=== PATIENT | female | born 1985 | race Two or more races ===

== ENCOUNTER 2024-06-30 15:16 | Outpatient (AMB) | payer MEDICAID, SELFPAY ==
[2024-06-30 15:36] VITALS: BP 90/60; PULSE 77; RESP 14; TEMP 36.6; O2SAT 97; BMI 23.8
--- NOTE | 2024-06-30 15:36 | OBCLNT_ITS ---
OB Initial Visit Menstrual History Menstrual reliability: definite Flow: normal Menstrual regularity: regular Monthly: Yes Age at menarche: 15 On control pills at conception: No Date of positive home test: 04/15/24 Associated symptoms (LMP): Reports fatigue, breast tenderness and irritability Infection History & Risk Evaluation History of STDs: none Genetic Screening & History Genetic Screening/Teratology Counseling - Includes patient, baby's father, or anyone in either family with: 1. Patient's age 35 years or older as of estimated date of delivery: Yes 2. Thalassemia (Maldivian, Botswanan, Mediterranean, or Background); MCV less than 80: No 3. Neural Tube Defect (Meningomyelocele, Spina Bifida, or Anencephaly): No 4. Congenital Heart Defect: No 5. Down Syndrome: No 6. Rocael-Sachs (Ashkenazi Latter Day, Cajun, [place] Korean Mccurtain): No 7. Emmy Disease (Ashkenazi Latter Day): No 8. Familial Dysautonomia (Ashkenazi Latter Day): No 9. Sickle Cell Disease or Trait (): No 10. Hemophilia or other blood disorders: No 11. Muscular Dystrophy: No 12. Cystic Fibrosis: No 13. [place]'s Chorea: No 14. Mental Retardation/Autism: No 15. Other inherited genetic or chromosomal disorder: No 16. Maternal Metabolic Disorder (EG,TYPE 1 Diabetes, PKU): No 17. Patient or baby's father had a child with defects not listed above: No 18. Recurrent loss or a stillbirth: No 19. Medications (including supplements, vitamins, herbs or otc drugs)/illicit/recreational drugs/alcohol since last menstrual period: No 20. Any other: No Infection History 1. Live with someone with TB or exposed to TB: No 2. Rash or viral illness since last menstrual period: No 3. Hepatitis B,C: No Other (see comments) Source: [employer] Vital Signs 3 06/30/24 15:36 Height 1.57 m Height Method Stated Weight 58.967 kg Weight Measurement Method Standing Scale BMI 23.8 BP 90/60 Blood Pressure Source Automatic Cuff Blood Pressure Location Left Upper Arm Position Sitting Respiration 14 Pulse 77 Pulse Source Monitor Temp 98 F Temp Source Oral Pulse Oximetry (%) 97 Oxygen Delivery Method Room Air Allergies/Home Meds Allergies & Medications Allergies No Known Allergies Allergy (Verified 06/30/24 15:38) Medication Reconciliation vitamins-iron fumarate 27 mg iron-folic acid 0.8 mg tablet ( Vitamin) 1 tab PO QDAY 12/08/19 [History Confirmed 06/30/24] prednisone 20 mg tablet See Taper PO QDAY #21 tabs 07/27/22 [Rx Confirmed 06/30/24] Intake Visit Data Collection New Patient or Established: New Patient (never been to [facility]) Reason for Visit:: FIRST PART Seen by Clinical Staff ONLY (RN/MA): No Nitrogen Operator Required: Yes Nitrogen Operator's name/title: BRANDON Corbin Do You Feel Safe at Home: Yes Authorities Contacted: N/A PCP or OBGYN visit in last 3 months: Yes Date of Last PCP or OBGYN visit: 04/15/24 Hx Now: Yes Are you currently on any form of Control: No Last menstrual period: 02/26/24 Pain Present Currently: No Pain Scale Used: Olivarez-Coates/Numerical Pain scale:: 0 Smoking Status Smoking Status: Never smoker Questionnaires Covid-19 Vaccine Questionnaire Has patient been vacinated for Covid-19 Have you been vacinated for Covid-19: No PHQ-9 PHQ-2 Over the last 2 weeks, how often have you been bothered by any of the following problems? 1. Little interest or pleasure in doing things: not at all 2. Feeling down, depressed, or hopeless: not at all Total score: 0 Depression screen completed yes Social History Living Situation History Marital Status: Lives With: Family Housing: House Tobacco History Smoking Status: Never smoker Second Hand Smoke Exposure: No Alcohol History Alcohol Intake: Never Substance Use History Substance Use: NO Domestic Abuse History Do You Feel Safe at Home: Yes Past Medical History Past Medical History Have you ever been diagnosed with any of the following: Neurological Problems Seizures: No Cardiology Problems Congestive Heart Failure: No Respiratory Problems Chronic Obstructive Pulmonary Disease (COPD): No Asthma: No Stomache/Intestinal Problems Hepatitis: No Colorectal Cancer: No Genital/Urinary Problems Renal Disease: No Prostate Cancer: No Reproductive Problems Breast Cancer: No Previous Pregnancies: Yes Testicular Cancer: No Musculoskeletal Problems Bone Cancer: No Endocrine Problems Diabetes Mellitus Type 1: No Diabetes Mellitus Type 2: No Hypothyroidism: No Blood Problems Anemia: No Sickle Cell Disease: No Psychologic Problems Depression: Yes Anxiety: No Depression: No Other Problems Hospitalization: No Down Syndrome: No Developmental Delay: No Shingles: No Falls: No Blood Transfusions: No Blood Transfusion Reaction: No Anesthesia Reactions: No Organ Transplant: No Chemotherapy: No Radiation Therapy: No Hyperbaric Therapy: No MRSA: No VRSA: No Vancomycin-Resistant Enterococci: No Human Immunodeficiency Virus (HIV): No Chicken Pox: No Measles: No Mumps: No Rubella (Icelandic Measles): No Pertussis: No Clostridium Difficile: No Cancer: No Cervical Cancer: No Lung Cancer: No Ovarian Cancer: No Surgical History Additional Surgical History: Gestational DM, hx lovenox x 2 pregnancies, unsure if she has clots History of Present Illness HPI Narrative The patient is a 38-year-old -0-3-5 at around 17 weeks with a last menstrual period in mid February who presents as a new OB. She is Yoruba- speaking only and through my medical equipment repairer, Brandon, her history is obtained. Patient declines a breast exam she declines getting undressed she declines a Pap smear stating it will cause a miscarriage. She will except a pelvic exam and an ultrasound. She had diabetes for 2 pregnancies and had required insulin she also was on a blood thinner for the last 2 pregnancies for clots. I have no records available. She has had a history of vaginal delivery x 5. The last baby was born at 35 weeks per patient she was induced for diabetes. Review of Systems Constitutional Constitutional: Reports system reviewed and no additional complaints, except as documented and Reports fatigue Psychiatric Psychiatric: Reports irritability Endocrine Endocrine: Reports fatigue Exam Narrative Physical exam: Patient largely refused to be examined today except for a pelvic exam. General Limitations: no limitations and language barrier General Appearance: alert, comfortable and healthy appearing Abdominal Abdominal exam: Present soft External exam: Present other Speculum exam: Present other Bimanual exam: Present uterine enlargement Extremities Extremities exam: Present normal inspection Other Other exam information: Patient declined getting undressed and having a full gynecological exam. Her pelvic exam revealed approximately 16 to 17 weeks size uterus with an adequate pelvis and no tenderness. Results Objective Laboratory: All labs ordered. Hemoglobin A1c was ordered. Assessment & Plan Additional Plan Patient will need labs, hemoglobin A1c. She will need to be referred for level 2 ultrasound secondary to AMA and a history of gestational diabetes. Patient will except an NIPT but will declined an amniocentesis. We need to follow-up on whether the patient needs Lovenox this . Follow Up: 4 Weeks (Call for an appointment) Office Procedures OB Clinic LOC & Office Proc's Nursing/Assessment Patient Status: Initial/New Patient OB Clinic Nursing Assessment: Medication Reconciliation, Update PMH in EMR and Vital Signs OB Clinic Coordination of Care: Complex Care and Chronic Disease 1-5, Consent,records obtained, informed consent, Education Simp Pt/Fam, Lab and Imaging orders and Staff clarify orders Special Needs: Heart tones New Patient Charge New Patient Point Assignment: [id number] New Patient Point Charge: FIELD ADMINISTRATIVE ASSISTANT Level 4 ([id number])
== END 2024-06-30 16:29 | disposition home or self-care (01) ==
LOC: HODSOBC 15:16
PROVIDERS: Supervising Provider Obstetrics & Gynecology; Visit Provider Obstetrics & Gynecology
DX: O09.522 Supervision of elderly multigravida, second trimester (principal); Z3A.17 17 weeks gestation of pregnancy
CPT/HCPCS: 99204; 99214; G0463

== ENCOUNTER → 2024-07-04 | Outpatient (CLI) | payer MEDICAID, SELFPAY ==
--- NOTE | 2024-07-04 12:50 | XR_ITS ---
Examination: Complete OB ultrasound greater than 14 weeks Date and time of exam: July 04, 2024 12:20 PM INDICATIONS: Diagnosis antiphospholipid syndrome, diagnosis advanced maternal age Findings: Viable intrauterine single fetus with single amniotic sac presentation variable Cardiac motion 141 BPM Placenta fundal grade 1 Umbilical cord insertion seen Amniotic fluid index 13.2 cm Cervix 6.1 cm Right ovary obscured by bowel gas Left ovary 2.9 x 1.4 x 2.5 cm arterial flow. Composite estimated gestational age based on BPD, head circumference, abdominal circumference, femur length is 18 weeks 0 days Estimated weight 221.7 g. Survey of intracranial anatomy, spinal anatomy, abdominal anatomy, four-chamber heart performed with no abnormalities identified. Impression: Viable intrauterine gestation variable presentation Estimated gestational age 18 weeks 0 days.
== END | disposition home or self-care (01) ==
PROVIDERS: PCP Obstetrics & Gynecology; Referring Provider Obstetrics & Gynecology; Visit Provider Obstetrics & Gynecology
DX: Z34.91 Encounter for supervision of normal pregnancy, unspecified, first trimester (principal)
CPT/HCPCS: 76805

== ENCOUNTER 2024-08-05 14:04 | Outpatient (AMB) | payer MEDICAID, SELFPAY ==
[2024-08-05 14:13] VITALS: BP 90/55; PULSE 79; RESP 16; TEMP 36.2; O2SAT 98; BMI 24.6
--- NOTE | 2024-08-05 14:13 | AMB.OBVISIT ---
Vital Signs 08/05/24 14:13 Height 1.57 m Height Method Stated Weight 60.781 kg Weight Measurement Method Standing Scale BMI 24.6 BP 90/55 L Blood Pressure Source Automatic Cuff Blood Pressure Location Left Upper Arm Position Sitting Respiration 16 Pulse 79 Pulse Source Monitor Temp 97.2 F Temp Source Oral Pulse Oximetry (%) 98 Oxygen Delivery Method Room Air Allergies/Home Meds Allergies & Medications Allergies No Known Allergies Allergy (Verified 08/05/24 14:14) Medication Reconciliation vitamins-iron fumarate 27 mg iron-folic acid 0.8 mg tablet ( Vitamin) 1 tab PO QDAY 12/08/19 [History Confirmed 08/05/24] prednisone 20 mg tablet See Taper PO QDAY #21 tabs 07/27/22 [Rx Confirmed 08/05/24] aspirin 81 mg chewable tablet 81 mg PO QDAY #30 tabs 08/05/24 [Rx] enoxaparin 40 mg/0.4 mL subcutaneous syringe (Lovenox) 40 mg (0.4 mL) subcut Q24H #4 mL 08/05/24 [Rx] vitamins no.159-iron fumarate 28 mg-folic acid 800 mcg tablet 1 tab PO DAILY #90 tabs 08/05/24 [Rx] Intake Visit Data Collection New Patient or Established: Established Patient (seen at [facility] within 3 years) Reason for Visit:: Return OB Visit Seen by Clinical Staff ONLY (RN/MA): No Smooth And Burr Worker Composites Required: Yes Smooth And Burr Worker Composites's name/title: VALENTIN LEO / FOOD SERVICE MANAGER Do You Feel Safe at Home: Yes Authorities Contacted: N/A PCP or OBGYN visit in last 3 months: Yes Date of Last PCP or OBGYN visit: 06/30/24 Hx Now: Yes Are you currently on any form of Control: No Pain Present Currently: No Pain Scale Used: Olivarez-Coates/Numerical Pain scale:: 0 Smoking Status Smoking Status: Never smoker Questionnaires Covid-19 Vaccine Questionnaire Has patient been vacinated for Covid-19 Have you been vacinated for Covid-19: Yes PHQ-9 PHQ-2 Over the last 2 weeks, how often have you been bothered by any of the following problems? 1. Little interest or pleasure in doing things: not at all 2. 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 Smoking Status: Never smoker Second Hand Smoke Exposure: No Alcohol History Alcohol Intake: Never Substance Use History Substance Use: NO Domestic Abuse History Do You Feel Safe at Home: Yes Past Medical History Past Medical History Have you ever been diagnosed with any of the following: Neurological Problems Seizures: No Cardiology Problems Congestive Heart Failure: No Respiratory Problems Chronic Obstructive Pulmonary Disease (COPD): No Asthma: No Stomache/Intestinal Problems Hepatitis: No Colorectal Cancer: No Genital/Urinary Problems Renal Disease: No Prostate Cancer: No Reproductive Problems Breast Cancer: No Previous Pregnancies: Yes Testicular Cancer: No Musculoskeletal Problems Bone Cancer: No Endocrine Problems Diabetes Mellitus Type 1: No Diabetes Mellitus Type 2: No Hypothyroidism: No Blood Problems Anemia: No Sickle Cell Disease: No Psychologic Problems Depression: Yes Anxiety: No Depression: No Other Problems Hospitalization: No Down Syndrome: No Developmental Delay: No Shingles: No Falls: No Blood Transfusions: No Blood Transfusion Reaction: No Anesthesia Reactions: No Organ Transplant: No Chemotherapy: No Radiation Therapy: No Hyperbaric Therapy: No MRSA: No VRSA: No Vancomycin-Resistant Enterococci: No Human Immunodeficiency Virus (HIV): No Chicken Pox: No Measles: No Mumps: No Rubella (Bengali Measles): No Pertussis: No Clostridium Difficile: No Cancer: No Cervical Cancer: No Lung Cancer: No Ovarian Cancer: No History of Present Illness HPI Narrative Patient is a 38-year-old -0-3-5 presents for routine OB appointment. She is close to 20 weeks . She does work in the [employer] and bends and lifts all day. 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 We did discuss going off on disability secondary to the very physical nature of her work. She denies cramping or vaginal bleeding. Her labs are reviewed with her today including a normal NIPT. Patient knows she is having a girl. She knows she is to be scheduled for a level 2 ultrasound. She has a history of gestational diabetes her hemoglobin A1c this is normal. She was on Lovenox in a previous for possible antiphospholipid antibody syndrome. We will start this again. Review of Systems Constitutional Comments: No cramping or bleeding. No contractions. No loss of fluid fluids. Good movement. Visit SAEED Calculator Estimated Delivery Date Method Current WG Current Estimate 12/05/24 Ultrasound #1 22w 4d Expected Delivery Route/Plan Anticipate vaginal delivery. Grand multiparous. To IV lines and consider blood on hold depending on what patient's hemoglobin is. Initial Weight: Not Recorded Date <del>?</del> EGA Weight Edema CTX Effacement BP Fundal ht Pres Dilation Effacement Station Visit Note Alb Glu FHR Mov 08/05/24 <del>?</del> 22w 4d 60.781 kg 90/55 24 150 active Assessment & Plan Diagnosis / Problem List (1) : Status: Acute Qualifiers: Weeks of gestation: 22 weeks Qualified Code(s): Z3A.22 - 22 weeks gestation of (2) Antiphospholipid antibody syndrome complicating : Status: Acute Plan: Start Lovenox 40 mg daily now. Patient was on this in the past. She knows how to administer this (3) AMA (advanced maternal age) multigravida 35+: Status: Acute Qualifiers: Trimester: second trimester Qualified Code(s): O09.522 - Supervision of elderly multigravida, second trimester Plan: Scheduled for level [address] Herrera. Normal NIPT 46XX. Additional Plan Follow Up: 4 Weeks Office Procedures OB Clinic LOC & Office Proc's Nursing/Assessment Patient Status: Established Patient OB Clinic Nursing Assessment: BP Monitoring, Medication Reconciliation, Update PMH in EMR and Vital Signs OB Clinic Coordination of Care: Complex Care and Chronic Disease 1-5, Consent,records obtained, informed consent, Education Simp Pt/Fam and Staff clarify orders Established Patient Charge Established Patient Point Assignment: 100 Established Patient Point Charge: EP Level 3 (80-115)
== END 2024-08-05 14:45 | disposition home or self-care (01) ==
LOC: HODSOBC 14:04
PROVIDERS: Supervising Provider Obstetrics & Gynecology; Visit Provider Obstetrics & Gynecology
DX: O09.522 Supervision of elderly multigravida, second trimester (principal); D68.61 Antiphospholipid syndrome; Z3A.20 20 weeks gestation of pregnancy
CPT/HCPCS: 99213; G0463

== ENCOUNTER 2024-09-05 13:20 | Outpatient (AMB) | payer MEDICAID, SELFPAY ==
[2024-09-05 13:26] VITALS: BP 96/61; PULSE 75; RESP 14; TEMP 36.4; O2SAT 97; BMI 25.4
--- NOTE | 2024-09-05 13:26 | OBCLNT_ITS ---
Vital Signs 09/05/24 13:26 Height 1.57 m Height Method Stated Weight 62.652 kg Weight Measurement Method Standing Scale BMI 25.4 BP 96/61 Blood Pressure Source Automatic Cuff Blood Pressure Location Left Upper Arm Position Sitting Respiration 14 Pulse 75 Pulse Source Monitor Temp 97.6 F Temp Source Oral Pulse Oximetry (%) 97 Oxygen Delivery Method Room Air Allergies/Home Meds Allergies & Medications Allergies No Known Allergies Allergy (Verified 09/05/24 13:27) Medication Reconciliation vitamins-iron fumarate 27 mg iron-folic acid 0.8 mg tablet ( Vitamin) 1 tab PO QDAY 12/08/19 [History Confirmed 09/05/24] prednisone 20 mg tablet See Taper PO QDAY #21 tabs 07/27/22 [Rx Confirmed 09/05/24] aspirin 81 mg chewable tablet 81 mg PO QDAY #30 tabs 08/05/24 [Rx Confirmed 09/05/24] vitamins no.159-iron fumarate 28 mg-folic acid 800 mcg tablet 1 tab PO DAILY #90 tabs 08/05/24 [Rx Confirmed 09/05/24] enoxaparin 40 mg/0.4 mL subcutaneous syringe (Lovenox) 40 mg (0.4 mL) subcut Q24H #4 mL 09/10/24 [Rx] Intake Visit Data Collection New Patient or Established: Established Patient (seen at [facility] within 3 years) Reason for Visit:: CARE Seen by Clinical Staff ONLY (RN/MA): No Conference Specialist Required: No Do You Feel Safe at Home: Yes Authorities Contacted: N/A PCP or OBGYN visit in last 3 months: Yes Hx Now: Yes Are you currently on any form of Control: No Pain Present Currently: No Pain Scale Used: Olivarez-Coates/Numerical Pain scale:: 0 Smoking Status Smoking Status: Never smoker Questionnaires Covid-19 Vaccine Questionnaire Has patient been vacinated for Covid-19 Have you been vacinated for Covid-19: No PHQ-9 PHQ-2 Over the last 2 weeks, how often have you been bothered by any of the following problems? 1. Little interest or pleasure in doing things: not at all 2. Feeling down, depressed, or hopeless: not at all Total score: 0 PHQ-9 3. Trouble falling or staying asleep, or sleeping too much: Not at all 4. Feeling tired or having little energy: Not at all 5. Poor appetite or overeating: Not at all 6. Feeling bad about yourself - or that you are a failure or have let yourself or your family down: Not at all 7. Trouble concentrating on things, such as reading the newspaper or watching television: Not at all 8. Moving or speaking so slowly that other people could have noticed? - Or the opposite - being so fidgety or restless that you have been moving around a lot more than usual: not at all 9. Thoughts that you would be better off or of hurting yourself in some way: Not at all Total score: 0 Source: Developed by Drs. Horace Caceres, Radha Castro, Emeterio Lindquist and colleagues, with an educational david from [employer]. 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 Smoking Status: Never smoker Second Hand Smoke Exposure: No Alcohol History Alcohol Intake: Never Substance Use History Substance Use: NO Domestic Abuse History Do You Feel Safe at Home: Yes Past Medical History Past Medical History Have you ever been diagnosed with any of the following: Neurological Problems Seizures: No Cardiology Problems Congestive Heart Failure: No Respiratory Problems Chronic Obstructive Pulmonary Disease (COPD): No Asthma: No Stomache/Intestinal Problems Hepatitis: No Colorectal Cancer: No Genital/Urinary Problems Renal Disease: No Reproductive Problems Breast Cancer: No Previous Pregnancies: Yes Musculoskeletal Problems Bone Cancer: No Endocrine Problems Diabetes Mellitus Type 1: No Diabetes Mellitus Type 2: No Hypothyroidism: No Blood Problems Anemia: No Sickle Cell Disease: No Psychologic Problems Depression: Yes Anxiety: No Depression: No Other Problems Hospitalization: No Down Syndrome: No Developmental Delay: No Shingles: No Falls: No Blood Transfusions: No Blood Transfusion Reaction: No Anesthesia Reactions: No Organ Transplant: No Chemotherapy: No Radiation Therapy: No Hyperbaric Therapy: No MRSA: No VRSA: No Vancomycin-Resistant Enterococci: No Human Immunodeficiency Virus (HIV): No Chicken Pox: No Measles: No Mumps: No Rubella (Croatian Measles): No Pertussis: No Clostridium Difficile: No Cancer: No Cervical Cancer: No Lung Cancer: No Ovarian Cancer: No Visit OB Visit Log OB Flowsheet Initial Weight: Not Recorded Date -?-?-?-?-?-?-?-?-?-?-?-?- EGA Weight Edema CTX Effacement BP Fundal ht Pres Dilation Effacement Station Visit Note Alb Glu FHR Mov 08/05/24 -?-?-?-?-?-?-?-?-?-?-?--?- 22w 4d 60.781 kg 90/55 24 150 active 09/05/24 -?-?-?-?-?-?-?-?-?-?-?-?- 27w 0d 62.652 kg 96/61 28 Will refill Lovenox 14 7 active SAEED Calculator Estimated Delivery Date Method Current WG Current Estimate 12/05/24 Ultrasound #1 27w 5d Comments: A+/Ab-/Rubella NONimmune/RPR NR/HebSag-/Hep c-/GC/Chlam-/HIV-. All labs at [facility] 07/04/24 NIPT - Expected Delivery Route/Plan Anticipate vaginal delivery. Grand multiparous. Two IV lines and consider blood on hold depending on what patient's hemoglobin is. Notes Visit Date: 09/05/24 Last Updated by: Cailin Slater (OB Clinic), MD BROWN. Seeing [facility] for Level II US. On lovenox for Antiphospholipid syndrome Assessment & Plan Diagnosis / Problem List (1) : Status: Acute Qualifiers: Weeks of gestation: 22 weeks Qualified Code(s): Z3A.22 - 22 weeks gestation of (2) Antiphospholipid antibody syndrome complicating : Status: Acute (3) AMA (advanced maternal age) multigravida 35+: Status: Acute Qualifiers: Trimester: third trimester Qualified Code(s): O09.523 - Supervision of elderly multigravida, third trimester Office Procedures OB Clinic LOC & Office Proc's Nursing/Assessment Patient Status: Established Patient OB Clinic Nursing Assessment: Medication Reconciliation, Update PMH in EMR and Vital Signs OB Clinic Coordination of Care: AMA, Complex Care and Chronic Disease 1-5, Consent,records obtained, informed consent, Education Simp Pt/Fam and Staff clarify orders Special Needs: Heart tones Established Patient Charge Established Patient Point Assignment: 135 Established Patient Point Charge: EP Level 5 (160-above)
== END 2024-09-05 13:55 | disposition home or self-care (01) ==
LOC: HODSOBC 13:20
PROVIDERS: Supervising Provider Obstetrics & Gynecology; Visit Provider Obstetrics & Gynecology
DX: O09.522 Supervision of elderly multigravida, second trimester (principal); Z3A.27 27 weeks gestation of pregnancy; O09.892 Supervision of other high risk pregnancies, second trimester; O99.112 Other diseases of the blood and blood-forming organs and certain disorders involving the immune mechanism complicating pregnancy, second trimester; D68.61 Antiphospholipid syndrome; Z78.9 Other specified health status; Z79.52 Long term (current) use of systemic steroids; Z79.82 Long term (current) use of aspirin; Z79.01 Long term (current) use of anticoagulants
CPT/HCPCS: 99215; G0463

== ENCOUNTER 2024-09-15 14:22 | Outpatient (AMB) | payer MEDICAID, SELFPAY ==
[2024-09-15 14:36] VITALS: BP 95/55; PULSE 83; RESP 18; TEMP 36.2; O2SAT 98; BMI 24.3
--- NOTE | 2024-09-15 14:36 | OBCLNT_ITS ---
Vital Signs 09/15/24 14:36 Height 1.57 m Height Method Stated Weight 60.044 kg Weight Measurement Method Standing Scale BMI 24.3 BP 95/55 L Blood Pressure Source Automatic Cuff Blood Pressure Location Left Upper Arm Position Sitting Respiration 18 Pulse 83 Pulse Source Monitor Temp 97.2 F Temp Source Oral Pulse Oximetry (%) 98 Oxygen Delivery Method Room Air Allergies/Home Meds Allergies & Medications Allergies No Known Allergies Allergy (Verified 09/15/24 14:37) Medication Reconciliation vitamins-iron fumarate 27 mg iron-folic acid 0.8 mg tablet ( Vitamin) 1 tab PO QDAY 12/08/19 [History Confirmed 09/15/24] prednisone 20 mg tablet See Taper PO QDAY #21 tabs 07/27/22 [Rx Confirmed 09/15/24] aspirin 81 mg chewable tablet 81 mg PO QDAY #30 tabs 08/05/24 [Rx Confirmed 09/15/24] vitamins no.159-iron fumarate 28 mg-folic acid 800 mcg tablet 1 tab PO DAILY #90 tabs 08/05/24 [Rx Confirmed 09/15/24] enoxaparin 40 mg/0.4 mL subcutaneous syringe (Lovenox) 40 mg (0.4 mL) subcut Q24H #4 mL 09/10/24 [Rx Confirmed 09/15/24] Intake Visit Data Collection New Patient or Established: Established Patient (seen at [facility] within 3 years) Reason for Visit:: return OB Seen by Clinical Staff ONLY (RN/MA): No Ferris Wheel 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 Required: Yes Ferris Wheel Attendant's 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 1. Little interest or pleasure in doing things: not at all 2. Feeling down, depressed, or hopeless: not at all Total score: 0 PHQ-9 3. Trouble falling or staying asleep, or sleeping too much: Not at all 4. Feeling tired or having little energy: Not at all 5. Poor appetite or overeating: Not at all 6. Feeling bad about yourself - or that you are a failure or have let yourself or your family down: Not at all 7. Trouble concentrating on things, such as reading the newspaper or watching television: Not at all 8. Moving or speaking so slowly that other people could have noticed? - Or the opposite - being so fidgety or restless that you have been moving around a lot more than usual: not at all 9. Thoughts that you would be better off or of hurting yourself in some way: Not at all Total score: 0 If you checked off any problems, how difficult have these problems made it for you to do your work, take care of things at home, or get along with other people?: not difficult at all Source: Developed by Drs. Horace Caceres, Radha Castro, Emeterio Lindquist and colleagues, with an educational david from [employer]. 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 Smoking Status: Never smoker Second Hand Smoke Exposure: No Alcohol History Alcohol Intake: Never Substance Use History Substance Use: NO Domestic Abuse History Do You Feel Safe at Home: Yes Past Medical History Past Medical History Have you ever been diagnosed with any of the following: Neurological Problems Seizures: No Cardiology Problems Congestive Heart Failure: No Respiratory Problems Chronic Obstructive Pulmonary Disease (COPD): No Asthma: No Stomache/Intestinal Problems Hepatitis: No Colorectal Cancer: No Genital/Urinary Problems Renal Disease: No Reproductive Problems Breast Cancer: No Previous Pregnancies: Yes Musculoskeletal Problems Bone Cancer: No Endocrine Problems Diabetes Mellitus Type 1: No Diabetes Mellitus Type 2: No Hypothyroidism: No Blood Problems Anemia: No Sickle Cell Disease: No Psychologic Problems Depression: Yes Anxiety: No Depression: No Other Problems Hospitalization: No Down Syndrome: No Developmental Delay: No Shingles: No Falls: No Blood Transfusions: No Blood Transfusion Reaction: No Anesthesia Reactions: No Organ Transplant: No Chemotherapy: No Radiation Therapy: No Hyperbaric Therapy: No MRSA: No VRSA: No Vancomycin-Resistant Enterococci: No Human Immunodeficiency Virus (HIV): No Chicken Pox: No Measles: No Mumps: No Rubella (Icelandic Measles): No Pertussis: No Clostridium Difficile: No Cancer: No Cervical Cancer: No Lung Cancer: No Ovarian Cancer: No Visit OB Visit Log OB Flowsheet Initial Weight: Not Recorded Date -?-?-?-?-?-?-?-?-?-?-?-?- EGA Weight Edema CTX Effacement BP Fundal ht Pres Dilation Effacement Station Visit Note Alb Glu FHR Mov 08/05/24 -?-?-?--?-?-?-?-?-?-?-?-?- 22w 4d 60.781 kg 90/55 24 150 active 09/05/24 -?-?-?-?-?-?-?-?-?-?-?-?- 27w 0d 62.652 kg 96/61 28 Will refill Lovenox 14 7 active 09/15/24 -?-?-?-?-?-?-?-?-?-?-?-?- 28w 3d 60.044 kg 95/55 29 150 active SAEED Calculator Estimated Delivery Date Method Current WG Current Estimate 12/05/24 Ultrasound #1 29w 0d Comments: PNC from [employer] [facility] : A+/ Ab screen -/Rubella Nonimmune/ Urine cx-/RPR NR/HIV-/Hep BsAg-/ Hep C-/ NIPT 46 XX 07/09/24 Expected Delivery Route/Plan Anticipate vaginal delivery. Grand multiparous. Two IV lines and consider blood on hold depending on what patient's hemoglobin is. Specific Issue/Plans AMA seeing MFM Possible Antiphospholipid ab syndrome On Lovenox Sanish-speaking only Notes Visit Date: 09/15/24 Last Updated by: Cailin Slater ([facility] Clinic)MD Passed 3 hour glucose Visit Date: 09/05/24 Last Updated by: Cailin Slater ([facility] Clinic)MD AMA. Seeing MFM for Level II US. On lovenox for Antiphospholipid syndrome Assessment & Plan Diagnosis / Problem List (1) : Status: Acute Qualifiers: Weeks of gestation: 22 weeks Qualified Code(s): Z3A.22 - 22 weeks gestation of (2) Antiphospholipid antibody syndrome complicating : Status: Acute (3) AMA (advanced maternal age) multigravida 35+: Status: Acute Qualifiers: Trimester: third trimester Qualified Code(s): O09.523 - Supervision of elderly multigravida, third trimester Office Procedures OB Clinic LOC & Office Proc's Nursing/Assessment Patient Status: Established Patient OB Clinic Nursing Assessment: BP Monitoring, Medication Reconciliation, Update PMH in EMR and Vital Signs OB Clinic Coordination of Care: Consent,records obtained, informed consent, Education Simp Pt/Fam, Results/Orders obtained and Staff clarify orders Special Needs: Heart tones Established Patient Charge Established Patient Point Assignment: 110 Established Patient Point Charge: EP Level 3 (80-115)
== END 2024-09-15 15:10 | disposition home or self-care (01) ==
LOC: HODSOBC 14:22
PROVIDERS: PCP Obstetrics & Gynecology; Referring Provider Obstetrics & Gynecology; Supervising Provider Obstetrics & Gynecology; Visit Provider Obstetrics & Gynecology
DX: O09.523 Supervision of elderly multigravida, third trimester (principal); O09.893 Supervision of other high risk pregnancies, third trimester; O99.113 Other diseases of the blood and blood-forming organs and certain disorders involving the immune mechanism complicating pregnancy, third trimester; Z3A.28 28 weeks gestation of pregnancy; D68.61 Antiphospholipid syndrome; Z78.9 Other specified health status; Z79.01 Long term (current) use of anticoagulants; Z79.52 Long term (current) use of systemic steroids; Z79.82 Long term (current) use of aspirin
CPT/HCPCS: 99213; G0463

== ENCOUNTER 2024-09-28 15:14 | Observation (INO) | payer MEDICAID, SELFPAY ==
[2024-09-28 15:21] VITALS: BP 101/67; PULSE 73
[2024-09-28 15:28] VITALS: BP 101/67; PULSE 73; RESP 16; RESP 99; TEMP 36.7; BMI 24.9
[2024-09-28 15:49] VITALS: BP 96/63; PULSE 73
[2024-09-28 16:20] VITALS: BP 92/59; BP 96/60; PULSE 68; PULSE 71
[2024-09-28 16:29] LABS: Collection Type, Urine Clean Catch
[2024-09-28 16:41] LABS: Bilirubin,Urine Negative (Negative); Blood,Urine Negative (Negative); Clarity,Urine Clear (Clear/Hazy); Color,Urine Colorless (Lt Yel-Yel); Culture Indicated,Urine Not Indicated; Glucose, Urine Negative (Negative); Ketones,Urine Negative (Negative); Leukocyte Esterase,Urine Negative (Negative); Nitrite,Urine Negative (Negative); PH,Urine 6.5 (5.0-7.0); Protein,Urine Negative (Neg - Trace); RBC,Urine 1 /hpf (0-3); Specific Gravity,Urine 1.004 (1.001-1.035); Squamous Epithelial Cell,Urine 1 /hpf (0-5); Urobilinogen,Urine Negative mg/dL (0.0-1.0); WBC,Urine 1 /hpf (0-5)
[2024-09-28 16:49] VITALS: BP 94/63; PULSE 74
== END 2024-09-28 17:13 | disposition home or self-care (01) ==
PROVIDERS: Admitting Provider Obstetrics & Gynecology; Visit Provider Obstetrics & Gynecology
DX: O26.893 Other specified pregnancy related conditions, third trimester (principal); Z3A.30 30 weeks gestation of pregnancy; R10.9 Unspecified abdominal pain
CPT/HCPCS: 59025; 59899; 81001

== ENCOUNTER 2024-10-03 13:02 | Outpatient (AMB) | payer MEDICAID, SELFPAY ==
[2024-10-03 13:22] VITALS: BP 95/89; PULSE 80; RESP 18; TEMP 36.2; O2SAT 98
--- NOTE | 2024-10-03 13:22 | OBCLNT_ITS ---
Vital Signs 10/03/24 13:22 Weight 61.745 kg Weight Measurement Method Standing Scale BP 95/89 H Blood Pressure Source Automatic Cuff Blood Pressure Location Left Upper Arm Position Sitting Respiration 18 Pulse 80 Pulse Source Monitor Temp 97.2 F Temp Source Oral Pulse Oximetry (%) 98 Oxygen Delivery Method Room Air Allergies/Home Meds Allergies & Medications Allergies No Known Allergies Allergy (Verified 10/03/24 13:27) Medication Reconciliation vitamins-iron fumarate 27 mg iron-folic acid 0.8 mg tablet ( Vitamin) 1 tab PO QDAY 12/08/19 [History Confirmed 10/03/24] prednisone 20 mg tablet See Taper PO QDAY #21 tabs 07/27/22 [Rx Confirmed 10/03/24] aspirin 81 mg chewable tablet 81 mg PO QDAY #30 tabs 08/05/24 [Rx Confirmed 10/03/24] vitamins no.159-iron fumarate 28 mg-folic acid 800 mcg tablet 1 tab PO DAILY #90 tabs 08/05/24 [Rx Confirmed 10/03/24] enoxaparin 40 mg/0.4 mL subcutaneous syringe (Lovenox) 40 mg (0.4 mL) subcut Q24H #4 mL 09/10/24 [Rx Confirmed 10/03/24] Intake Visit Data Collection New Patient or Established: Established Patient (seen at [facility] within 3 years) Reason for Visit:: OB CHECK Seen by Clinical Staff ONLY (RN/MA): No Do You Feel Safe at Home: Yes Authorities Contacted: N/A PCP or OBGYN visit in last 3 months: Yes Hx Now: Yes Are you currently on any form of Control: No Pain Present Currently: No Pain Scale Used: Olivarez-Coates/Numerical Pain scale:: 0 Smoking Status Smoking Status: Never smoker Questionnaires Covid-19 Vaccine Questionnaire Has patient been vacinated for Covid-19 Have you been vacinated for Covid-19: Yes PHQ-9 PHQ-2 Over the last 2 weeks, how often have you been bothered by any of the following problems? 1. Little interest or pleasure in doing things: not at all 2. Feeling down, depressed, or hopeless: not at all Total score: 0 PHQ-9 3. Trouble falling or staying asleep, or sleeping too much: Not at all 4. Feeling tired or having little energy: Not at all 5. Poor appetite or overeating: Not at all 6. Feeling bad about yourself - or that you are a failure or have let yourself or your family down: Not at all 7. Trouble concentrating on things, such as reading the newspaper or watching television: Not at all 8. Moving or speaking so slowly that other people could have noticed? - Or the opposite - being so fidgety or restless that you have been moving around a lot more than usual: not at all 9. Thoughts that you would be better off or of hurting yourself in some way: Not at all Total score: 0 If you checked off any problems, how difficult have these problems made it for you to do your work, take care of things at home, or get along with other people?: not difficult at all Source: Developed by Drs. Horace Caceres, Radha Castro, Emeterio Lindquist and colleagues, with an educational david from [employer] 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 Past Medical History: No Hx Neurological Disorders, No Hx Hypothyroidism, No Hx Breast Cancer, No Hx Cardiac Disorders, No Hx Cancer, No Hx Blood Disorders, No Hx Anemia, No Hx Gastrointestinal Disorders, No Hx Renal Disease, No Hx Diabetes Mellitus Type 1 and No Hx Diabetes Mellitus Type 2 Care OB Visit Log OB Flowsheet Initial Weight: Not Recorded Date -?-?-?-?-?-?-?-?-?-?-?-?- EGA Weight Edema CTX Effacement BP Fundal ht Pres Dilation Effacement Station V isit Note Alb Glu FHR Mov 08/05/24 -?-?-?-?-?-?-?-?-?-?-?-?- 22w 4d 60.781 kg 90/55 24 150 active 09/05/24 -?-?-?-?-?-?-?-?-?-?-?-?- 27w 0d 62.652 kg 96/61 28 Will refill Lovenox 14 7 active 09/15/24 -?-?-?-?-?-?-?-?-?-?-?-?- 28w 3d 60.044 kg 95/55 29 150 active 10/03/24 -?--?-?-?-?-?-?-?-?-?-?-?- 31w 0d 61.745 kg 95/89 32 Pa karen was in triage earlier this week with cramping. All tests were negative. She needs a refill on Lovenox. MFM wanted to start NSTs at 32 weeks 154 active SAEED Calculator Estimated Delivery Date Method Current WG Current Estimate 12/05/24 Ultrasound #1 31w 0d Comments: labs scanned on chart: A positive /antibody screen negative/ rubella nonimmune/ RPR nonreactive/ HIV negative/ GC negative/ Chlamydia negative/ hepatitis B surface antigen negative/ hepatitis C negative /urine culture negative /NIPT from 07/31/24 46 XX glucose screen passed fasting 81 /1 hour 169 /2-hour 139 Expected Delivery Route/Plan Anticipate vaginal delivery. Grand multiparous. Two IV lines and consider blood on hold depending on what patient's hemoglobin is. Patient declines tubal ligation even if she needs a . Patient probably will decline an epidural Specific Issue/Plans AMA seeing MFM Possible Antiphospholipid ab syndrome On Lovenox Sanish-speaking only Probable induction of labor at 38-39 weeks since patient is on Lovenox. Notes Visit Date: 10/03/24 Last Updated by: Cailin Slater ([facility])MD Will authorize for NSTs starting next week. Will refill Lovenox Visit Date: 09/15/24 Last Updated by: Cailin Slater ([facility] Clinic)MD Passed 3 hour glucose Visit Date: 09/05/24 Last Updated by: Cailin Slater ([facility])MD AMA. Seeing [facility] for Level II US. On lovenox for Antiphospholipid syndrome Office Procedures OB Clinic LOC & Office Proc's Nursing/Assessment Patient Status: Established Patient OB Clinic Nursing Assessment: Medication Reconciliation, Update PMH in EMR and Vital Signs OB Clinic Coordination of Care: Education Complex Pt/Fam, Consent,records obtained, informed consent and Staff clarify orders Special Needs: Heart tones and Language special needs Established Patient Charge Established Patient Point Assignment: 95 Established Patient Point Charge: EP Level 3 (80-115)
== END 2024-10-03 13:54 | disposition home or self-care (01) ==
LOC: HODSOBC 13:02
PROVIDERS: PCP Obstetrics & Gynecology; Referring Provider Obstetrics & Gynecology; Supervising Provider Obstetrics & Gynecology; Visit Provider Obstetrics & Gynecology
DX: O09.523 Supervision of elderly multigravida, third trimester (principal); O09.893 Supervision of other high risk pregnancies, third trimester; O99.113 Other diseases of the blood and blood-forming organs and certain disorders involving the immune mechanism complicating pregnancy, third trimester; D68.61 Antiphospholipid syndrome; Z79.01 Long term (current) use of anticoagulants; Z3A.31 31 weeks gestation of pregnancy
CPT/HCPCS: 99213; G0463

== ENCOUNTER 2024-10-20 14:35 | Outpatient (AMB) | payer MEDICAID, SELFPAY ==
[2024-10-20 15:16] VITALS: BP 98/65; PULSE 83; RESP 16; TEMP 36.6; O2SAT 97; BMI 25.7
--- NOTE | 2024-10-20 15:16 | OBCLNT_ITS ---
Vital Signs 10/20/24 15:16 Height 1.55 m Height Method Stated Weight 61.915 kg Weight Measurement Method Standing Scale BMI 25.7 BP 98/65 Blood Pressure Source Automatic Cuff Blood Pressure Location Right Upper Arm Position Sitting Respiration 16 Pulse 83 Pulse Source Monitor Temp 97.9 F Temp Source Oral Pulse Oximetry (%) 97 Oxygen Delivery Method Room Air Allergies/Home Meds Allergies & Medications Allergies No Known Allergies Allergy (Verified 10/20/24 15:17) Medication Reconciliation vitamins-iron fumarate 27 mg iron-folic acid 0.8 mg tablet ( Vitamin) 1 tab PO QDAY 12/08/19 [History Confirmed 10/20/24] prednisone 20 mg tablet See Taper PO QDAY #21 tabs 07/27/22 [Rx Confirmed 10/20/24] aspirin 81 mg chewable tablet 81 mg PO QDAY #30 tabs 08/05/24 [Rx Confirmed 10/20/24] vitamins no.159-iron fumarate 28 mg-folic acid 800 mcg tablet 1 tab PO DAILY #90 tabs 08/05/24 [Rx Confirmed 10/20/24] enoxaparin 40 mg/0.4 mL subcutaneous syringe (Lovenox) 40 mg (0.4 mL) subcut Q24H #4 mL 10/20/24 [Rx] Intake Visit Data Collection New Patient or Established: Established Patient (seen at [facility] within 3 years) Reason for Visit:: CARE Seen by Clinical Staff ONLY (RN/MA): No Music Therapy Specialist Required: Yes Music Therapy Specialist's name/title: VALENTIN LEO Do You Feel Safe at Home: Yes Authorities Contacted: N/A PCP or OBGYN visit in last 3 months: Yes Hx Now: Yes Are you currently on any form of Control: No Pain Present Currently: No Pain Scale Used: Olivarez-Coates/Numerical Pain scale:: 0 Smoking Status Smoking Status: Never smoker Questionnaires Covid-19 Vaccine Questionnaire Has patient been vacinated for Covid-19 Have you been vacinated for Covid-19: Yes PHQ-9 PHQ-2 Over the last 2 weeks, how often have you been bothered by any of the following problems? 1. Little interest or pleasure in doing things: not at all 2. Feeling down, depressed, or hopeless: not at all Total score: 0 PHQ-9 3. Trouble falling or staying asleep, or sleeping too much: Not at all 4. Feeling tired or having little energy: Not at all 5. Poor appetite or overeating: Not at all 6. Feeling bad about yourself - or that you are a failure or have let yourself or your family down: Not at all 7. Trouble concentrating on things, such as reading the newspaper or watching television: Not at all 8. Moving or speaking so slowly that other people could have noticed? - Or the opposite - being so fidgety or restless that you have been moving around a lot more than usual: not at all 9. Thoughts that you would be better off or of hurting yourself in some way: Not at all Total score: 0 Source: Developed by Drs. Horace Caceres, Radha Castro, Emeterio Lindquist and colleagues, with an educational david from [employer]. 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 Past Medical History: No Hx Neurological Disorders, No Hx Hypothyroidism, No Hx Breast Cancer, No Hx Cardiac Disorders, No Hx Cancer, No Hx Blood Disorders, No Hx Anemia, No Hx Gastrointestinal Disorders, No Hx Renal Disease, No Hx Diabetes Mellitus Type 1 and No Hx Diabetes Mellitus Type 2 Care OB Visit Log OB Flowsheet Initial Weight: Not Recorded Date -?-?-?-?-?-?-?-?-?-?-?-?- EGA Weight BP Alb Glu CTX Pres Fundal ht FHR Mov Dilation Station Effacement Hx Notes Visit Note 08/05/24 -?-?-?-?-?-?-?-?-?-?-?-?- 22w 4d 60.781 kg 90/55 24 150 active 09/05/24 -?-?-?-?-?-?-?-?-?-?-?-?- 27w 0d 62.652 kg 96/61 28 147 active Will refill Lovenox 09/15/24 -?-?-?-?-?-?-?-?-?-?-?-?- 28w 3d 60.044 kg 95/55 29 150 active 10/03/24 -?-?-?-?-?-?-?-?-?-?-?-?- 31w 0d 61.745 kg 95/89 32 154 active Patient was in triage earlier this week with cramping. All tests were negative. She needs a refill on Lovenox. MFM wanted to start NSTs at 32 weeks 10/20/24 -?-?-?-?-?-?-?-?-?-?-?-?- 33w 3d 61.915 kg 98/65 34 145 active Plus FM no UC's no VB needs NSTs. These were already ordered last week. Sees Dr. Herrera Sunday. SAEED Calculator Estimated Delivery Date Method Current WG Current Estimate 12/05/24 Ultrasound #1 33w 3d Comments: labs scanned and on the chart. A+\antibody negative\rubella immune\RPR nonreactive\HIV negative\hepatitis B surface antigen negative\hepatitis C- \hemoglobin A1c 5.5/ passed a 2-hour glucose 81\169\139. NIPT 46XX. Expected Delivery Route/Plan Anticipate vaginal delivery. Grand multiparous. Two IV lines and consider blood on hold depending on what patient's hemoglobin is. Patient declines tubal ligation even if she needs a . Patient probably will decline an epidural Specific Issue/Plans AMA seeing MFM Possible Antiphospholipid ab syndrome On Lovenox Sanish-speaking only Probable induction of labor at 38-39 weeks since patient is on Lovenox. Notes Visit Date: 10/03/24 Last Updated by: Cailin Slater ([facility])MD Will authorize for NSTs starting next week. Will refill Lovenox Visit Date: 09/15/24 Last Updated by: Cailin Slater ([facility])MD Passed 3 hour glucose Visit Date: 09/05/24 Last Updated by: Cailin Slater ([facility] Clinic)MD AMA. Seeing [facility] for Level II US. On lovenox for Antiphospholipid syndrome Office Procedures OB Clinic LOC & Office Proc's Nursing/Assessment Patient Status: Established Patient OB Clinic Nursing Assessment: Medication Reconciliation, Update PMH in EMR and Vital Signs OB Clinic Coordination of Care: Complex Care and Chronic Disease 1-5, Consent,records obtained, informed consent, Education Simp Pt/Fam, Lab and Imaging orders, Results/Orders obtained and Staff clarify orders Special Needs: Heart tones Established Patient Charge Established Patient Point Assignment: 135 Established Patient Point Charge: EP Level 4 (120-155) Assessment & Plan Diagnosis / Problem List (1) : Status: Acute Qualifiers: Weeks of gestation: 33 weeks Qualified Code(s): Z3A.33 - 33 weeks gestation of Assessment and Plan: Seeing high risk doctor.: Managed with ultrasounds every 4 weeks. Induce at 38 weeks. (2) Antiphospholipid antibody syndrome complicating : Status: Acute Assessment and Plan: On Lovenox induced at 38 weeks (3) AMA (advanced maternal age) multigravida 35+: Status: Acute Qualifiers: Trimester: third trimester Qualified Code(s): O09.523 - Supervision of elderly multigravida, third trimester Assessment and Plan: NSTs ordered at 32 weeks. Not started at 33 weeks. Will start now. Induced at 38 weeks
== END 2024-10-20 16:06 | disposition home or self-care (01) ==
LOC: HODSOBC 14:35
PROVIDERS: Supervising Provider Obstetrics & Gynecology; Visit Provider Obstetrics & Gynecology
DX: O09.523 Supervision of elderly multigravida, third trimester (principal); Z3A.33 33 weeks gestation of pregnancy; O09.893 Supervision of other high risk pregnancies, third trimester; O99.113 Other diseases of the blood and blood-forming organs and certain disorders involving the immune mechanism complicating pregnancy, third trimester; D68.61 Antiphospholipid syndrome; Z79.01 Long term (current) use of anticoagulants; Z79.82 Long term (current) use of aspirin; Z79.52 Long term (current) use of systemic steroids
CPT/HCPCS: 99214; G0463

== ENCOUNTER 2024-11-03 15:26 | Outpatient (AMB) | payer MEDICAID, SELFPAY ==
[2024-11-03 15:58] VITALS: BP 92/57; PULSE 87; RESP 17; TEMP 36.7; O2SAT 97; BMI 26.0
--- NOTE | 2024-11-03 15:58 | OBCLNT_ITS ---
Vital Signs 11/03/24 15:58 Height 1.55 m Height Method Stated Weight 62.652 kg Weight Measurement Method Standing Scale BMI 26.0 BP 92/57 L Blood Pressure Source Automatic Cuff Blood Pressure Location Right Upper Arm Position Sitting Respiration 17 Pulse 87 Pulse Source Monitor Temp 98.0 F Temp Source Temporal Artery Scan Pulse Oximetry (%) 97 Oxygen Delivery Method Room Air Allergies/Home Meds Allergies & Medications Allergies No Known Allergies Allergy (Verified 11/03/24 15:59) Medication Reconciliation aspirin 81 mg chewable tablet 81 mg PO QDAY #30 tabs 08/05/24 [Rx Confirmed 11/03/24] vitamins no.159-iron fumarate 28 mg-folic acid 800 mcg tablet 1 tab PO DAILY #90 tabs 08/05/24 [Rx Confirmed 11/03/24] enoxaparin 40 mg/0.4 mL subcutaneous syringe (Lovenox) 40 mg (0.4 mL) subcut Q24H #4 mL 10/20/24 [Rx Confirmed 11/03/24] Intake Visit Data Collection New Patient or Established: Established Patient (seen at [facility] within 3 years) Reason for Visit:: OBC / GBS Seen by Clinical Staff ONLY (RN/MA): No District Sales Manager Required: Yes District Sales Manager's name/title: VALENTIN LEO Do You Feel Safe at Home: Yes Authorities Contacted: N/A PCP or OBGYN visit in last 3 months: Yes Date of Last PCP or OBGYN visit: 10/29/24 Hx Now: Yes Are you currently on any form of Control: No Pain Present Currently: No Pain Scale Used: Olivarez-Coates/Numerical Pain scale:: 0 Smoking Status Smoking Status: Never smoker Questionnaires Covid-19 Vaccine Questionnaire Has patient been vacinated for Covid-19 Have you been vacinated for Covid-19: No PHQ-9 PHQ-2 Over the last 2 weeks, how often have you been bothered by any of the following problems? 1. Little interest or pleasure in doing things: not at all 2. Feeling down, depressed, or hopeless: not at all Total score: 0 PHQ-9 3. Trouble falling or staying asleep, or sleeping too much: Not at all 4. Feeling tired or having little energy: Not at all 5. Poor appetite or overeating: Not at all 6. Feeling bad about yourself - or that you are a failure or have let yourself or your family down: Not at all 7. Trouble concentrating on things, such as reading the newspaper or watching television: Not at all 8. Moving or speaking so slowly that other people could have noticed? - Or the opposite - being so fidgety or restless that you have been moving around a lot more than usual: not at all 9. Thoughts that you would be better off or of hurting yourself in some way: Not at all Total score: 0 If you checked off any problems, how difficult have these problems made it for you to do your work, take care of things at home, or get along with other peopl e?: not difficult at all Source: Developed by Drs. Horace Caceres, Radha Castro, Emeterio Lindquist and colleagues, with an educational david from [employer]. 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 Past Medical History: No Hx Neurological Disorders, No Hx Hypothyroidism, No Hx Breast Cancer, No Hx Cardiac Disorders, No Hx Cancer, No Hx Blood Disorders, No Hx Anemia, No Hx Gastrointestinal Disorders, No Hx Renal Disease, No Hx Diabetes Mellitus Type 1 and No Hx Diabetes Mellitus Type 2 Care OB Visit Log OB Flowsheet Initial Weight: Not Recorded Date -?-?-?-?-?-?-?-?-?-?-?-?- EGA Weight BP Alb Glu CTX Pres Fundal ht FHR Mov Dilation Station Ef facement Hx Notes Visit Note 08/05/24 -?-?-?-?-?-?-?-?-?-?-?-?- 22w 4d 60.781 kg 90/55 24 150 active 09/05/24 -?-?-?-?-?-?-?-?-?-?-?-?- 27w 0d 62.652 kg 96/61 28 147 active Will refill Lovenox 09/15/24 -?-?-?-?-?-?-?-?-?-?-?-?- 28w 3d 60.044 kg 95/55 29 150 active 10/03/24 -?-?-?-?-?-?-?-?-?-?-?-?- 31w 0d 61.745 kg 95/89 32 154 active Patient was in triage earlier this week with cramping. All tests were negative. She needs a refill on Lovenox. MFM wanted to start NSTs at 32 weeks 10/20/24 -?-?-?-?-?-?-?-?-?-?-?-?- 33w 3d 61.915 kg 98/65 34 145 active Plus FM no UC's no VB needs NSTs. These were already ordered last week. Sees Dr. Herrera Sunday. 11/03/24 -?-?-?-?-?-?-?-?-?-?-?-?- 35w 3d 62.652 kg 92/57 35 135 active +FM NO UCs NO LOF. Going to [facility] for NSTS every . Saw Dr Herrera SAEED Calculator Estimated Delivery Date Method Current WG Current Estimate 12/05/24 Ultrasound #1 35w 3d Expected Delivery Route/Plan A+/ Antibody screen negative/rubella nonimmune/RPR nonreactive/HIV negative/hepatitis B surface antigen negative/NIPT within normal limits Anticipate vaginal delivery. Grand multiparous. Two IV lines and consider blood on hold depending on what patient's hemoglobin is. IOL at 38 to 39 weeks for AMA, on Lovenox. Patient declines tubal ligation even if she needs a . Patient probably will decline an epidural Specific Issue/Plans 39 y/o AMA seeing M Possible Antiphospholipid ab syndrome On Lovenox Sanish-speaking only Probable induction of labor at 38-39 weeks since patient is on Lovenox. Notes Visit Date: 10/03/24 Last Updated by: Cailin Slater ([facility])MD Will authorize for NSTs starting next week. Will refill Lovenox Visit Date: 09/15/24 Last Updated by: Cailin Slater ([facility])MD Passed 3 hour glucose Visit Date: 09/05/24 Last Updated by: Cailin Slater ([facility]), MD BROWN. Seeing MFM for Level II US. On lovenox for Antiphospholipid syndrome Office Procedures OB Clinic LOC & Office Proc's Nursing/Assessment Patient Status: Established Patient OB Clinic Nursing Assessment: Medication Reconciliation, Update PMH in EMR and Vital Signs OB Clinic Coordination of Care: Complex Care and Chronic Disease 1-5, Consent,records obtained, informed consent, Education Simp Pt/Fam, Lab and Imaging orders and Staff clarify orders Special Needs: Heart tones Miscellaneous Interventions: Culture Specimen Collection Established Patient Charge Established Patient Point Assignment: 145 Established Patient Point Charge: EP Level 4 (120-155)
== END 2024-11-03 16:44 | disposition home or self-care (01) ==
LOC: HODSOBC 15:26
PROVIDERS: Supervising Provider Obstetrics & Gynecology; Visit Provider Obstetrics & Gynecology
DX: O09.523 Supervision of elderly multigravida, third trimester (principal); O09.43 Supervision of pregnancy with grand multiparity, third trimester; Z3A.35 35 weeks gestation of pregnancy; Z79.01 Long term (current) use of anticoagulants
CPT/HCPCS: 99214; G0463

== ENCOUNTER 2024-11-18 15:08 | Outpatient (AMB) | payer MEDICAID, SELFPAY ==
[2024-11-18 15:26] VITALS: BP 95/61; PULSE 85; RESP 17; TEMP 36.5; O2SAT 97; BMI 26.2
--- NOTE | 2024-11-18 15:26 | OBCLNT_ITS ---
Vital Signs 11/18/24 15:26 Height 1.55 m Height Method Stated Weight 63.106 kg Weight Measurement Method Standing Scale BMI 26.2 BP 95/61 Blood Pressure Source Automatic Cuff Blood Pressure Location Right Upper Arm Position Sitting Respiration 17 Pulse 85 Pulse Source Monitor Temp 97.7 F Temp Source Temporal Artery Scan Pulse Oximetry (%) 97 Oxygen Delivery Method Room Air Allergies/Home Meds Allergies & Medications Allergies No Known Allergies Allergy (Verified 11/18/24 15:27) Medication Reconciliation aspirin 81 mg chewable tablet 81 mg PO QDAY #30 tabs 08/05/24 [Rx Confirmed ] vitamins no.159-iron fumarate 28 mg-folic acid 800 mcg tablet 1 tab PO DAILY #90 tabs 08/05/24 [Rx Confirmed 11/18/24] enoxaparin 40 mg/0.4 mL subcutaneous syringe (Lovenox) 40 mg (0.4 mL) subcut Q24H #4 mL 10/20/24 [Rx Confirmed 11/18/24] enoxaparin 40 mg/0.4 mL subcutaneous syringe (Lovenox) 40 mg (0.4 mL) subcut Q24H 5 days #2 mL 11/18/24 [Rx] Intake Visit Data Collection New Patient or Established: Established Patient (seen at [facility] within 3 years) Reason for Visit:: OBC Seen by Clinical Staff ONLY (RN/MA): No Thread Grinder Tool Required: Yes Do You Feel Safe at Home: Yes Authorities Contacted: N/A PCP or OBGYN visit in last 3 months: Yes Date of Last PCP or OBGYN visit: 11/12/24 Hx Now: Yes Are you currently on any form of Control: No Pain Present Currently: No Pain Scale Used: Olivarez-Coates/Numerical Pain scale:: 0 Smoking Status Smoking Status: Never smoker Questionnaires Covid-19 Vaccine Questionnaire Has patient been vacinated for Covid-19 Have you been vacinated for Covid-19: No PHQ-9 PHQ-2 Over the last 2 weeks, how often have you been bothered by any of the following problems? 1. Little interest or pleasure in doing things: not at all 2. Feeling down, depressed, or hopeless: not at all Total score: 0 PHQ-9 3. Trouble falling or staying asleep, or sleeping too much: Not at all 4. Feeling tired or having little energy: Not at all 5. Poor appetite or overeating: Not at all 6. Feeling bad about yourself - or that you are a failure or have let yourself or your family down: Not at all 7. Trouble concentrating on things, such as reading the newspaper or watching television: Not at all 8. Moving or speaking so slowly that other people could have noticed? - Or the opposite - being so fidgety or restless that you have been moving around a lot more than usual: not at all 9. Thoughts that you would be better off or of hurting yourself in some way: Not at all Total score: 0 If you checked off any problems, how difficult have these problems made it for you to do your work, take care of things at home, or get along with other people?: not difficult at all Source: Developed by Drs. Horace Caceres, Radha Castro, Emeterio Lindquist and colleagues, with an educational david from [employer]. 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 Medical History Past Medical History: No Hx Neurological Disorders, No Hx Hypothyroidism, No Hx Breast Cancer, No Hx Cardiac Disorders, No Hx Cancer, No Hx Blood Disorders, No Hx Anemia, No Hx Gastrointestinal Disorders, No Hx Renal Disease, No Hx Diabetes Mellitus Type 1 and No Hx Diabetes Mellitus Type 2 Care OB Visit Log OB Flowsheet Initial Weight: Not Recorded Date -?-?-?-?-?-?--?-?-?-?-?-?- EGA Weight BP Alb Glu CTX Pres Fundal ht FHR Mov Dilation Station Effacement Hx Notes Visit Note 08/05/24 -?-?-?-?-?-?-?-?-?-?-?-?- 22w 4d 60.781 kg 90/55 24 150 active 09/05/24 -?-?-?-?-?-?-?-?-?-?-?-?- 27w 0d 62.652 kg 96/61 28 147 active Will refill Lovenox 09/15/24 -?-?-?-?-?-?-?-?-?-?-?-?- 28w 3d 60.044 kg 95/55 29 150 active 10/03/24 -?-?-?-?-?-?-?-?-?-?-?-?- 31w 0d 61.745 kg 95/89 32 154 active Patient was in triage earlier this week with cramping. All tests were negative. She needs a refill on Lovenox. MFM wanted to start NSTs at 32 weeks 10/20/24 -?-?-?-?-?-?-?-?-?-?-?-?- 33w 3d 61.915 kg 98/65 34 145 active Plus FM no UC's no VB needs NSTs. These were already ordered last week. Sees Dr. Herrera Sunday. 11/03/24 -?-?-?-?-?-?-?-?-?-?-?-?- 35w 3d 62.652 kg 92/57 35 135 active +FM NO UCs NO LOF. Going to [facility] for NSTS every . Saw Dr Herrera 11/18/24 -?-?-?-?-?-?-?-?-?-?-?-?- 37w 4d 63.106 kg 95/61 36 140 active Positive movement no c ontractions no vaginal bleeding did not desire an exam today. No strep screen on chart. SAEED Calculator Estimated Delivery Date Method Current WG Current Estimate 12/05/24 Ultrasound #1 37w 4d Expected Delivery Route/Plan A+/ Antibody screen negative/rubella nonimmune/RPR nonreactive/HIV negat antoinette/hepatitis B surface antigen negative/NIPT within normal limits Anticipate vaginal delivery. Grand multiparous. Two IV lines and consider blood on hold depending on what patient's hemoglobin is. IOL at 38 to 39 weeks for AMA, on Lovenox. Patient declines tubal ligation even if she needs a . Patient probably will decline an epidural Specific Issue/Plans 39 y/o AMA seeing MFM Possible Antiphospholipid ab syndrome On Lovenox Sanish-speaking only Probable induction of labor at 38-39 weeks since patient is on Lovenox. Notes Visit Date: 11/18/24 Last Updated by: Cailin Slater ([facility])MD Induction of labor set up for 11/27/2024. Patient have an ultrasound tomorrow for size with NST. Patient to stop her Lovenox 3 days before induction on 11/24/2024. Visit Date: 10/03/24 Last Updated by: Cailin Slater ([facility])MD Will authorize for NSTs starting next week. Will refill Lovenox Visit Date: 09/15/24 Last Updated by: Cailin Slater ([facility])MD Passed 3 hour glucose Visit Date: 09/05/24 Last Updated by: Cailin Slater ([facility])MD AMA. Seeing MFM for Level II US. On lovenox for Antiphospholipid syndrome Office Procedures OB Clinic LOC & Office Proc's Nursing/Assessment Patient Status: Established Patient OB Clinic Nursing Assessment: Medication Reconciliation, Update PMH in EMR and Vital Signs OB Clinic Coordination of Care: Complex Care and Chronic Disease 1-5, Consent,records obtained, informed consent, Education Simp Pt/Fam and Staff clarify orders Special Needs: Heart tones Established Patient Charge Established Patient Point Assignment: 115 Established Patient Point Charge: EP Level 3 (80-115)
== END 2024-11-18 16:33 | disposition home or self-care (01) ==
LOC: HODSOBC 15:08
PROVIDERS: Supervising Provider Obstetrics & Gynecology; Visit Provider Obstetrics & Gynecology
DX: O09.523 Supervision of elderly multigravida, third trimester (principal); O09.43 Supervision of pregnancy with grand multiparity, third trimester; O09.893 Supervision of other high risk pregnancies, third trimester; Z3A.37 37 weeks gestation of pregnancy; Z79.82 Long term (current) use of aspirin
CPT/HCPCS: 99213; G0463

== ENCOUNTER 2024-11-19 10:32 | Outpatient (RCR) | payer MEDICAID, SELFPAY ==
--- NOTE | 2024-10-22 10:32 | XR_ITS ---
Examination: Biophysical profile, ultrasound Date and time of exam: October 22, 2024 1045 hours INDICATIONS: Diagnosis advanced maternal age Technique: Multiple transabdominal sonographic images of the pelvis abdomen obtained. Attention is directed to the breathing movement, gross body movement, amniotic fluid volume and tone. Findings: Amniotic fluid index 12.4 cm Total biophysical profile is 8 of 8. breathing movement is 2. Gross body movement is 2. tone is 2. Qualitative amniotic fluid volume is 2 Impression: Biophysical profile is 8 of 8.
[2024-10-22 11:20] VITALS: BP 78/46; PULSE 89; RESP 16
--- NOTE | 2024-10-29 10:43 | XR_ITS ---
Examination: Biophysical profile, ultrasound Date and time of exam: October 29, 2024 1045 hours INDICATIONS: Diagnosis advanced maternal age Technique: Multiple transabdominal sonographic images of the pelvis abdomen obtained. Attention is directed to the breathing movement, gross body movement, amniotic fluid volume and tone. Findings: Amniotic fluid index 12.6 cm Total biophysical profile is 8 of 8. breathing movement is 2. Gross body movement is 2. tone is 2. Qualitative amniotic fluid volume is 2 Impression: Biophysical profile is 8 of 8.
[2024-10-29 11:08] VITALS: BP 95/58; PULSE 82; RESP 16; TEMP 36.7
[2024-11-05 11:49] VITALS: BP 95/64; PULSE 67; RESP 16; TEMP 36.8
--- NOTE | 2024-11-05 11:51 | XR_ITS ---
Examination: Biophysical profile, ultrasound Date and time of exam: November 05, 2024 1129 hours INDICATIONS: Diagnosis advanced maternal age Technique: Multiple transabdominal sonographic images of the pelvis abdomen obtained. Attention is directed to the breathing movement, gross body movement, amniotic fluid volume and tone. Findings: Amniotic fluid index 10.1 cm Total biophysical profile is 8 of 8. breathing movement is 2. Gross body movement is 2. tone is 2. Qualitative amniotic fluid volume is 2 Impression: Biophysical profile is 8 of 8.
--- NOTE | 2024-11-12 10:34 | XR_ITS ---
Examination: Biophysical profile, ultrasound Date and time of exam: November 12, 2024 1050 hours INDICATIONS: Diagnosis advanced maternal age Technique: Multiple transabdominal sonographic images of the pelvis abdomen obtained. Attention is directed to the breathing movement, gross body movement, amniotic fluid volume and tone. Findings: Amniotic fluid index 17.1 cm Total biophysical profile is 8 of 8. breathing movement is 2. Gross body movement is 2. tone is 2. Qualitative amniotic fluid volume is 2 Impression: Biophysical profile is 8 of 8.
[2024-11-12 11:06] VITALS: BP 85/51; PULSE 94; RESP 16; TEMP 36.8
--- NOTE | 2024-11-19 10:35 | XR_ITS ---
Examination: Biophysical profile, ultrasound Date and time of exam: November 19, 2024 1048 hours INDICATIONS: Diagnosis advanced maternal age Technique: Multiple transabdominal sonographic images of the pelvis abdomen obtained. Attention is directed to the breathing movement, gross body movement, amniotic fluid volume and tone. Findings: Amniotic fluid index 14.6 cm Total biophysical profile is 8 of 8. breathing movement is 2. Gross body movement is 2. tone is 2. Qualitative amniotic fluid volume is 2 Impression: Biophysical profile is 8 of 8.
[2024-11-19 11:07] VITALS: BP 96/65; PULSE 98; RESP 16; TEMP 36.7
== END 2024-11-19 23:59 | disposition home or self-care (01) ==
LOC: S4S1 10:32
PROVIDERS: Referring Provider Obstetrics & Gynecology; Visit Provider Obstetrics & Gynecology
DX: O99.113 Other diseases of the blood and blood-forming organs and certain disorders involving the immune mechanism complicating pregnancy, third trimester (principal); D68.61 Antiphospholipid syndrome; O09.523 Supervision of elderly multigravida, third trimester; Z3A.37 37 weeks gestation of pregnancy
CPT/HCPCS: 59025; 76819

== ENCOUNTER 2024-11-26 21:42 | Inpatient (IN) | payer MEDICAID, SELFPAY ==
[2024-11-26 21:50] VITALS: BMI 25.8
[2024-11-26 22:10] VITALS: BP 98/64; PULSE 106
[2024-11-26 22:11] VITALS: BMI 25.8
[2024-11-26 22:27] VITALS: RESP 16; TEMP 36.9
[2024-11-26 23:02] LABS: Basophils # (Auto) 0.0 Thou/mm3 (0.0-0.2); Basophils % (Auto) 0 % (0-2.5); Eosinophils # (Auto) 0.1 Thou/mm3 (0.0-0.5); Eosinophils % (Auto) 1 % (0-10); Hematocrit 30.1 % (36.0-46.0); Hemoglobin 10.5 g/dL (12.0-16.0); Immature Granulocytes Auto 0.04 Thou/mm3 (0.00-0.00); Lymphocytes # (Auto) 2.1 Thou/mm3 (1.0-4.8); Lymphocytes % (Auto) 23 % (10-50); Mean Corpuscular HGB Conc 34.9 g/dl (31.0-37.0); Mean Corpuscular Hemoglobin 28.7 pg (25.0-35.0); Mean Corpuscular Volume 82 fL (80-100); Monocytes # (Auto) 0.5 Thou/mm3 (0.0-0.8); Monocytes % (Auto) 5 % (0-12); Neutrophils # (Auto) 6.5 Thou/mm3 (1.8-7.7); Neutrophils % (Auto) 71 % (37-80); Nucleated Red Blood Cell # 0.00 Thou/mm3 (0.00-0.00); Nucleated Red Blood Cell % 0 /100 WBC (0); Platelet Count 240 Thou/mm3 (140-440); RDW Standard Deviation 38.5 fL (36.4-46.3); Red Blood Count 3.66 Miln/mm3 (4.00-5.20); White Blood Count 9.2 Thou/mm3 (3.6-11.0)
[2024-11-26 23:31] LABS: Collection Type, Urine Clean Catch; Squamous Epithelial Cell,Urine 0 /hpf (0-5)
--- NOTE | 2024-11-26 23:38 | ESHP_ITS ---
Documentation for date of: 11/26/24 OB Labor/Induct. HPI History of Present Illness Chief complaint: IOL for APA at 39w1d : 9 Para: 5 Term pregnancies: 4 pregnancies: 1 Living children: 5 History of Abortions: Spontaneous and Elective: 3 History of Vaginal deliveries: 5 History of sections: No History of : No Date of last menstrual period: 02/26/24 SAEED: 12/02/24 Gestational Age (weeks): 39 Gestational Age (days): 1 Gestational age based on last menstrual period: 39 Indication for induction: other (APA Syndrome: elevated Ibsy-1-Ysnzvtthqdsk IgG) History of present illness: 39 y/o IUP 39w1d presents for IOL for APA Syndrome. She last took her Lovenox on 11/25 at 0900. She reports occasional contractions. Denies any bleeding or leaking. Reports normal movement. MFM US at 30 weeks showed normal anatomy. Her largest baby was 8'14 . She has a hx of GDM A2 in prior pregnancies but she has a NL 2 GTT in the current . NIPT showed low risk for aneuploidy, XX. Has care at [facility] Clinic. Comments: PMHx: Depression, APA Syndrome, GDM A2 x 2, Recurrent Loss, AMA, Latent TB infection Treated with INH. PSHx: Denies FHx: Denies Allergies: NKDA Meds: Lovenox 40mg SC daily (last dose 11/25 at 0900. ASA 81mg po daily. MVI po daily. Social Hx: Denies ETOH, SMO or Drug use. Wallisian speaking. Labs Labs: Negative: RPR, Hepatitis B, Rubella Titre, HIV, Chlamydia, Gonorrhea and Group Beta Strep and Unknown: Herpes Type 1, Herpes Type 2 and Covid-19 Review of Systems Review of Systems Narrative Review of Systems: Denies any chest pain, palpitation, shortness of breath, cough, fever, headache, change in vision, abdominal or pelvic pain or lower extremity pain. Past Medical History Surgical History SURGICAL: Negative Section Meds Home Medications and Allergies Allergies Allergy/AdvReac Type Severity Reaction Status Date / Time No Known Allergies Allergy Verified 11/26/24 22:08 OB Exam Physical Exam Vital signs: Temp Pulse Resp BP 98.5 F 106 H 16 98/64 11/26/24 22:27 11/26/24 22:10 11/26/24 22:27 11/26/24 22:10 Routine HEENT Exam Comments: Oropharynx and sclera clear. Routine Respiratory Exam Comments: CTA B/L Routine Cardiovascular Exam Comments: RRR Routine Abdominal Exam Comments: Gravid term size consistent with EFW 8.25 lbs Detailed Labor and Delivery Exam Dilation (cm): 2 Effacement (%): 50 station: -2 Presentation: Vertex Membranes: intact Comments: Per RN Exam Routine Extremities Exam Comments: Nontender Routine Skin Exam Comments: No gross rashes or lesions Routine Neurological Exam Comments: No deficit OB Results Labs 11/26/24 22:10 11/26/24 23:08 Labs: Short CBC 11/26/24 Range/Units 22:10 WBC 9.2 (3.6-11.0) Thou/mm3 Hgb 10.5 L (12.0-16.0) g/dL Hct 30.1 L (36.0-46.0) % Plt Count 240 (140-440) Thou/mm3 Impressions Impression: IUP 39w1d APA Syndrome AMA Iron def. Anemia Induction of Labor Cervical ripening with Cervidil to start. Anticipate Type and Cross and Hold 2 u pRBCs 2 large bore IV lines Informed Consent Obtained: The patient was made aware of the risks, complications, alternatives and benefits of induction as well as OVD and C/S delivery and agrees with these modes of delivery if indicated. Will need to resume Lovenox 12-24 hours and continue until 6 weeks due to high risk of VTE.
[2024-11-26 23:39] LABS: Amphetamine/Metham Scrn,Ur OB Negative (Negative); Benzoylecgonine Screen, Ur OB Negative (Negative); Opiate Screen,Urine OB Negative (Negative); THC Screen,Urine OB Negative (Negative)
[2024-11-26 23:40] LABS: Bilirubin,Urine Negative (Negative); Blood,Urine Negative (Negative); Clarity,Urine Clear (Clear/Hazy); Color,Urine Lt-Yellow (Lt Yel-Yel); Glucose, Urine Negative (Negative); Ketones,Urine 1+ (Negative); Leukocyte Esterase,Urine Negative (Negative); Nitrite,Urine Negative (Negative); PH,Urine 6.5 (5.0-7.0); Protein,Urine Negative (Neg - Trace); RBC,Urine 1 /hpf (0-3); Specific Gravity,Urine 1.013 (1.001-1.035); Urobilinogen,Urine Negative mg/dL (0.0-1.0); WBC,Urine < 1 /hpf (0-5)
[2024-11-26 23:44] LABS: Syphilis Nonreactive (Nonreactive)
[2024-11-26 23:47] VITALS: BP 96/62; PULSE 83; RESP 16; TEMP 36.8
[2024-11-26 23:50] LABS: Fibrinogen 419 mg/dL (175-375); INR 0.9 (0.9-1.3); Partial Thromboplastin Time 23.4 Seconds (22.0-36.0); Prothrombin Time 10.1 Seconds (9.0-12.2)
[2024-11-26 23:59] LABS: Alanine Aminotransferase < 7 U/L (10-49); Albumin, Serum 3.8 gm/dL (3.5-5.0); Albumin/Globulin Ratio 1.5 (1.2-2.2); Alkaline Phosphatase 130 U/L (46-116); Anion Gap 10 (7-16); Aspartate Amino Transferase 14 U/L (0-34); BUN/Creatinine Ratio 13 Ratio (12-20); Bilirubin,Total 0.5 mg/dL (0.3-1.2); Blood Urea Nitrogen 8 mg/dL (9-23); Calcium 8.7 mg/dL (8.3-10.6); Calcium (Corrected) 8.9 mg/dL (8.5-10.1); Carbon Dioxide 23.3 mMol/L (20.0-31.0); Chloride 104 mMol/L (98-107); Creatinine (Component) 0.6 mg/dL (0.6-1.3); Estimated Creatinine Clearance 109.5 mL/min (>60); Globulin 2.5 gm/dL (2.3-3.5); Glucose 90 mg/dL (74-106); Osmolality,Calculated 272 (275-295); Potassium 3.7 mMol/L (3.4-5.1); Sodium 137 mMol/L (136-145); Total Protein 6.3 gm/dL (5.7-8.2); Uric Acid 3.3 mg/dL (3.1-7.8); eGFR > 60 See Note
[2024-11-27] VITALS (78 sets, daily range): BP systolic 69–103; BP diastolic 36–68; PULSE 62–100; RESP 16–20; TEMP 36.2–36.9; O2SAT 85–100
[2024-11-27] MEDS: RINGERS LACTATED 1000 ML 1,000 ML 100 ML IV (05:15)
[2024-11-27] MEDS: fentaNYL CIT INJ 50 mCg/ML AMP 2ML 100 MCG IVP (05:55)
[2024-11-27] MEDS: TRANEXAMIC ACID 1,000 MG IVPB 1,000 MG/100 ML BAG 200 MG IV (07:36)
[2024-11-27] MEDS: OXYTOCIN in NS 20 units 20 UNIT/1,000 ML BAG 125 UNIT IV (08:06)
[2024-11-27] MEDS: IBUPROFEN TAB 400 MG TABLET 800 MG PO ×2 (08:25→18:11)
[2024-11-27] MEDS: BENZO/LANO/ALOE (Dermoplast) 60 GM CAN 1 SPRAY TOP (08:49)
[2024-11-27 09:14] LABS: Basophils # (Auto) 0.1 Thou/mm3 (0.0-0.2); Basophils % (Auto) 0 % (0-2.5); Eosinophils # (Auto) 0.0 Thou/mm3 (0.0-0.5); Eosinophils % (Auto) 0 % (0-10); Hematocrit 29.6 % (36.0-46.0); Hemoglobin 10.0 g/dL (12.0-16.0); Immature Granulocytes Auto 0.06 Thou/mm3 (0.00-0.00); Lymphocytes # (Auto) 1.2 Thou/mm3 (1.0-4.8); Lymphocytes % (Auto) 9 % (10-50); Mean Corpuscular HGB Conc 33.8 g/dl (31.0-37.0); Mean Corpuscular Hemoglobin 29.2 pg (25.0-35.0); Mean Corpuscular Volume 87 fL (80-100); Monocytes # (Auto) 0.6 Thou/mm3 (0.0-0.8); Monocytes % (Auto) 4 % (0-12); Neutrophils # (Auto) 12.0 Thou/mm3 (1.8-7.7); Neutrophils % (Auto) 86 % (37-80); Nucleated Red Blood Cell # 0.00 Thou/mm3 (0.00-0.00); Nucleated Red Blood Cell % 0 /100 WBC (0); Platelet Count 195 Thou/mm3 (140-440); RDW Standard Deviation 40.5 fL (36.4-46.3); Red Blood Count 3.42 Miln/mm3 (4.00-5.20); White Blood Count 13.9 Thou/mm3 (3.6-11.0)
[2024-11-28 00:03] VITALS: BP 90/48; PULSE 72; RESP 16; TEMP 36.6; O2SAT 97
[2024-11-28] MEDS: HYDROcodone/APAP 5/325 TABLET 2 TAB PO (00:09)
[2024-11-28 04:14] VITALS: BP 88/42; PULSE 61; RESP 16; TEMP 36.8; O2SAT 96
--- NOTE | 2024-11-28 04:50 | PD.LDDELS ---
Data (Ramos) Data Hx Section: No : 9 Term: 4 : 1 Livin Abortions: Spontaneous & Theraputic: 3 Delivery Data (Ramos) Labor Data Induction/Augmentation Agent: Cervidil ROM date: 11/27/24 ROM time: 07:31 Amniotic membrane rupture type: Spontaneous Amniotic fluid description: Clear Delivery Data Onset of labor date: 11/27/24 Onset of labor time: 05:15 Complete dilation date: 11/27/24 Complete dilation time: 07:30 [place] delivery date: 11/27/24 [place] delivery time: 07:32 Placenta delivery date: 11/27/24 Placenta delivery time: 07:35 Stage 1 total time: Labor - Stage 1 Duration 2 hours and 15 minutes Delivered by: Dr. Austin Delivery nurse: Shahzad Greco nurse: Bee Stripper Apprentice at delivery: No Support person(s) at delivery: Spouse Other staff at delivery: auora international recruiter Theresita ARSON INVESTIGATOR RT Delivery Method Delivery method: Normal Vaginal Delivery Presentation: Vertex Anesthesia Type Anesthesia Type: None Placenta Placenta delivery description: Spontaneous Cord blood sent to lab: Yes cord blood collection: Cord Blood Type Episiotomy Episiotomy description: None Umbilical Cord cord description: 3 Vessels [place] Data (Ramos) [place] Data order: 1 's gender: Female weight (gms): 3695 g Weight (pounds): 8 lbs and 2.3 ozs [place] length: 54 cm 1 minute: 8 5 minutes: 9
[2024-11-28 07:30] VITALS: BP 90/57; PULSE 67; RESP 18; TEMP 36.7; O2SAT 98
--- NOTE | 2024-11-28 08:29 | ESDS_ITS ---
DS: Providers Provider Date of admission: 11/26/24 21:42 Primary care physician: Physician No Primary/Family Admitting Provider: Ramos Shelby MD Attending Provider on Admission: Nelson Austin MD Consults: 11/27/24 08:27 Referral Routine Comment: Attending Provider on DC: Namrata Harrell MD Discharging Provider: Namrata Harrell MD Anticipated date of discharge: 11/28/24 DS: Diagnosis Problem List Completed Was Problem List Reviewed/Reconciled?: No Summary/Hosp Course Brief History: 39 y/o IUP 39w1d presents for IOL for APA Syndrome. She last took her Lovenox on 11/25 at 0900. She reports occasional contractions. Denies any bleeding or leaking. Reports normal movement. MFM US at 30 weeks showed normal anatomy. Her largest baby was 8'14 . She has a hx of GDM A2 in prior pregnancies but she has a NL 2 GTT in the current . NIPT showed low risk for aneuploidy, XX. Has care at OB Clinic. Peripartum Data Delivery Method: Normal Vaginal Delivery Episiotomy Description: None complications: none 1: Disposition of : home Status at Discharge Cognitive/behavioral status at discharge: normal Functional status at discharge: independent ambulation Time Spent with Patient Time attestation: Total time spent providing and/or coordinating discharge services: Time spent: Less than 30 minutes Exam Vital Signs Temp Pulse Resp BP Pulse Ox O2 Del Method 98.0 F 67 18 90/57 L 98 Room Air 11/28/24 07:30 11/28/24 07:30 11/28/24 07:30 11/28/24 07:30 11/28/24 07:30 11/28/24 07:30 Narrative Exam doing well , carrying out activities of daily life Off the lovenox . Not needed anymore as reason was for APLS bleeding, lochia normal, not dizzy and feels fine Constitutional Constitutional: no acute distress Routine Respiratory Exam Respiratory: Present chest non-tender, lungs clear, normal breath sounds, no resp distress and CTA bilaterally Routine Cardiovascular Exam Cardiovascular: Present RRR Routine Abdominal Exam Abdominal: Present soft and normoactive bowel sounds Comments: no fundal tenderness Routine Extremities Exam Extremities: Present full ROM and pulses intact Comments: no calf tenderness Routine Skin Exam Skin: Present intact Routine Neurological Exam Neurological: Present alert, oriented X3, normal reflexes and vision grossly intact Routine Psychiatric Exam Psychiatric: Present normal affect and normal thought process Discharge Plan Plan Patient Disposition: HOME (Self Care) Patient condition on transfer: Stable Prescriptions/Referrals Prescriptions/Med Rec: New acetaminophen 325 mg Tablet 650 mg PO Q6H PRN (Reason: Patient rated pain of 3) Qty: 30 0RF Dermoplast (with menthol) 20-0.5 % Aerosol 1 spray top PRN PRN (Reason: Perineal Discomfort) Qty: 78 0RF ibuprofen 400 mg Tablet 800 mg PO X1 PRN (Reason: uterine cramping) Qty: 20 0RF Discontinued enoxaparin [Lovenox] 40 mg/0.4 mL syringe 40 mg subcut Q24H Qty: 4 12RF aspirin 81 mg tablet,chewable 81 mg PO QDAY Qty: 30 0RF No Action PNV no.683-feni-xfosb acid 28 mg iron- 800 mcg tablet 1 tab PO DAILY Qty: 90 2RF Referrals: No Primary/Family,Physician [Primary Care Provider] - Patient/Caregiver Discharge Instructions Discharge Activity: activity as tolerated Other Discharge Activity Instructions:: pelvic rest x6 weeks / follow up with her provider ob in 2 weeks Other Discharge Diet Instructions: regular Print Language: Upper Sorbian Stand Alone Forms: [place] Award Info., Patient Portal Info Letter Discharge Order Discharge Orders: Discharge (Routine); Ordered 11/28/24 Ordered By: Namrata Harrell Planned Discharge Date 11/28/24
[2024-11-28] MEDS: DOCUSATE SOD 100 MG CAPSULE PO (08:43)
[2024-11-28] MEDS: ENOXAPARIN SOD INJ 40 MG/0.4 ML SYRINGE SC (08:43)
--- NOTE | 2024-11-28 10:47 | PC.CC ---
Patient is a 39-year-old, female, present to for delivery of baby girl. ASW, Deborah, met with patient [id number] to do initial assessment due to have a history of anxiety. ASW introduced herself, role in the agency, reason for visit, and discussed limits of confidentiality. Patient appeared alert and oriented to self, time, place, and situation. Patient made good eye contact. Patient was cooperative. Patient?s behavior appeared ordinary. No signs of delusions or hallucinations. Patient confirmed information on demographics and reports to living at home with her children ages 21, 20, 13, 4, 2. Patient reports the father of the baby is involved Armando Mathews. Patient reports 2-3 years ago she was taking medication for an unrelated health issue and a side-effect of the medication was anxiety. Patient reports that she stopped the medication and has not had symptoms of anxiety since. Per patient, she receives WIC and has all the supplies she needs for her . She reports to having a strong support system, which includes the father of the baby, her children, and sister, Rianna He. Patient plans to breast-feed and bottle-feed her . ASW provided psychoeducation regarding baby blues and Post- Depression, as well as counseling groups at [facility] and [facility]. SW provided community resources: Warm Line and Crisis Line. ASW provided update to QUINCY Esteban as bedside QUINCY Sandra was unavailable.
== END 2024-11-28 11:30 | disposition home or self-care (01) | DRG 560 ==
LOC: S4SX 11-27 07:41 → S4NX 11-27 11:46
PROVIDERS: Admitting Provider Specialist; Visit Provider Obstetrics & Gynecology
DX: O99.12 Other diseases of the blood and blood-forming organs and certain disorders involving the immune mechanism complicating childbirth (principal); D68.61 Antiphospholipid syndrome; Z37.0 Single live birth; Z3A.39 39 weeks gestation of pregnancy; Z23 Encounter for immunization
CPT/HCPCS: 36415; 59409; 80053; 80307; 81001; 84550; 85025; 85384; 85610; 85730; 86780; 86850; 86900; 86901; 86923; 90707; J1650; J2590; J3010; J3490; J7120; A9270

== ENCOUNTER 2024-12-24 13:57 | Outpatient (AMB) | payer MEDICAID, SELFPAY ==
[2024-12-24 14:16] VITALS: BP 109/70; PULSE 63; RESP 17; TEMP 36.7; O2SAT 97
--- NOTE | 2024-12-24 14:16 | AMBOBPPN_ITS ---
Vital Signs 12/24/24 14:16 Weight 56.245 kg Weight Measurement Method Standing Scale BP 109/70 Blood Pressure Source Automatic Cuff Blood Pressure Location Right Upper Arm Position Sitting Respiration 17 Pulse 63 Pulse Source Monitor Temp 98.0 F Temp Source Temporal Artery Scan Pulse Oximetry (%) 97 Oxygen Delivery Method Room Air Allergies/Home Meds Allergies & Medications Allergies No Known Allergies Allergy (Verified 12/24/24 14:17) Intake Visit Data Collection New Patient or Established: Established Patient (seen at [facility] within 3 years) Reason for Visit:: POST Consent obtained for Telemed Visit: No Seen by Clinical Staff ONLY (RN/MA): No Community Health Nursing Director Required: No Do You Feel Safe at Home: Yes Authorities Contacted: N/A PCP or OBGYN visit in last 3 months: Yes Date of Last PCP or OBGYN visit: 11/28/24 Hx Now: No Are you currently on any form of Control: No Pain Present Currently: No Pain Scale Used: Olivarez-Coates/Numerical Pain scale:: 0 Smoking Status 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: Past Medical History Past Medical History: No Hx Neurological Disorders, No Hx Hypothyroidism, No Hx Breast Cancer, No Hx Cardiac Disorders, No Hx Cancer, Yes Hx Blood Disorders, Yes Hx Anemia, No Hx Gastrointestinal Disorders, No Hx Renal Disease, No Hx Diabetes Mellitus Type 1 and No Hx Diabetes Mellitus Type 2 Questionnaires Covid-19 Vaccine Questionnaire Has patient been vacinated for Covid-19 Have you been vacinated for Covid-19: No Social History Living Situation History Lives With: Family Housing: House Housing 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 [employer] Tobacco History Smoking Status: Never smoker Second Hand Smoke Exposure: No Alcohol History Alcohol Intake: Never Substance Use History Substance Use: NO Domestic Abuse History Do You Feel Safe at Home: Yes EPDS - PP Depression Screening [place] Pospartum Depression Screen I have been able to laugh and see the funny side of things: (0) As much as I always could I have looked forward with enjoyment to things: (0) As much as I ever did I have blamed myself unnecessarily when things went wrong: (0) No, never I have been anxious or worried for no good reason: (0) No, not at all I have felt scared or panicky for no very good reason: (0) No, not at all Things have been getting on top of me: (0) No, I have been coping as well as ever I have been so unhappy that I have had difficulty sleeping: (0) No, not at all I have felt sad or miserable: (0) No, not at all I have been so unhappy that I have been crying: (0) No, never The thought of harming myself has occurred to me: (0) Never Total Score: EPDS Score: Referral is indicated for score of 9 or more, suicidal, or if provider believes patient is depressed regardless of score.: 0 EPDS completed yes Care OB Visit Log OB Flowsheet Initial Weight: Not Recorded Date -?-?-?-?-?-?-?-?-?-?-?-?- EGA Weight BP Alb Glu CTX Pres Fundal ht FHR Mov Dilation Station Effacement Hx Notes Visit Note 08/05/24 -?-?-?-?-?-?-?-?-?-?-?-?- 22w 4d 60.781 kg 90/55 24 150 active 09/05/24 -?-?-?-?-?-?-?-?-?-?-?-?- 27w 0d 62.652 kg 96/61 28 147 active Will refill Lovenox 09/15/24 -?-?-?-?-?-?-?-?-?-?-?-?- 28w 3d 60.044 kg 95/55 29 150 active 10/03/24 -?-?-?-?-?-?-?-?-?-?-?-?- 31w 0d 61.745 kg 95/89 32 154 active Patient was in triage earlier this week with cramping. All tests were negative. She needs a refill on Lovenox. MFM wanted to start NSTs at 32 weeks 10/20/24 -?-?-?-?-?-?-?-?-?-?-?-?- 33w 3d 61.915 kg 98/65 34 145 active Plus FM no UC's no VB needs NSTs. These were already ordered last week. Sees Dr. Herrera Sunday. 11/03/24 -?-?-?-?-?-?-?-?-?-?-?-?- 35w 3d 62.652 kg 92/57 35 135 active +FM NO UCs NO LOF. Going to [facility] for NSTS every Weds. Saw Dr Herrera 11/18/24 -?-?-?-?-?-?-?-?-?-?-?-?- 37w 4d 63.106 kg 95/61 36 140 active Positive movement no contractions no vaginal bleeding did not desire an exam today. No strep screen on chart. SAEED Calculator Estimated Delivery Date Method Current WG Current Estimate 12/05/24 Ultrasound #1 42w 5d Expected Delivery Route/Plan A+/ Antibody screen negative/rubella nonimmune/RPR nonreactive/HIV negative/hepatitis B surface antigen negative/NIPT within normal limits Anticipate vaginal delivery. Grand multiparous. Two IV lines and consider blood on hold depending on what patient's hemoglobin is. IOL at 38 to 39 weeks for AMA, on Lovenox. Patient declines tubal ligation even if she needs a . Patient probably will decline an epidural Specific Issue/Plans 39 y/o AMA seeing MFM Possible Antiphospholipid ab syndrome On Lovenox Sanish-speaking only Probable induction of labor at 38-39 weeks since patient is on Lovenox. Notes Visit Date: 11/18/24 Last Updated by: Cailin Slater ([facility])MD Induction of labor set up for 11/27/2024. Patient have an ultrasound tomorrow for size with NST. Patient to stop her Lovenox 3 days before induction on 11/24/2024. Visit Date: 10/03/24 Last Updated by: Cailin Slater ([facility])MD Will authorize for NSTs starting next week. Will refill Lovenox Visit Date: 09/15/24 Last Updated by: Cailin Slater ([facility])MD Passed 3 hour glucose Visit Date: 09/05/24 Last Updated by: Cailin Slater ([facility])MD AMA. Seeing MFM for Level II US. On lovenox for Antiphospholipid syndrome HPI Interval History: Patient is a 39-year-old -1-3-6 status post vaginal delivery by Dr. Austin 11/28/2024. She is in good spirits today. She is Afghan-speaking only and the entire exam and interview is taken with Sharon, medical reimbursement manager. She denies heavy vaginal bleeding or cramping. She is interested in contraception but states due to her antiphospholipid antibody syndrome, she is not supposed to take estrogen-containing control. She declines Nexplanon and IUD. She will take the minipill. She denies any problems with depression and would like a note to go back to work. Was or delivery considered high risk: Yes Delivery type: vaginal Was labor induced: yes and medically indicated Gestational age at delivery (weeks): 39 Delivery date: 11/28/24 Delivering provider: Dr. Austin Delivery complications: No Is patient : Yes Is patient sexually active: No Contraception planned: Micronor Review of Systems Constitutional Constitutional: Reports system reviewed and no additional complaints, except as documented Comments: Patient denies depression. She denies heavy bleeding. She denies foul discharge. She denies fevers. She denies dysuria. She denies breast complaints. Exam General Limitations: no limitations and physical limitation General Appearance: alert, in no apparent distress, comfortable, cooperative and healthy appearing Neck Neck exam: Present normal inspection, full ROM and trachea midline Chest Chest inspection: Present normal inspection and symmetric chest wall rise Abdominal Abdominal exam: Present soft, normal bowel sounds and other (Fundus is firm and deep in pelvis. Nontender) Extremities Extremities exam: Present normal inspection and full ROM Psych Psychiatric exam: Present normal affect and normal mood Skin Skin exam: Present warm, dry, intact and normal color Office Procedures OB Clinic LOC & Office Proc's Nursing/Assessment Patient Status: Established Patient OB Clinic Nursing Assessment: Medication Reconciliation, Update PMH in EMR and Vital Signs OB Clinic Coordination of Care: Complex Care and Chronic Disease 1-5, Consent,records obtained, informed consent, Education Simp Pt/Fam and 4+ Authorizations needed Established Patient Charge Established Patient Point Assignment: 100 Established Patient Point Charge: EP Level 3 (80-115) Assessment & Plan Diagnosis / Problem List (1) Routine Follow-Up: Assessment and Plan: Patient is doing well. No signs of depression. Home on Micronor. Condoms for the first month for backup control. Follow-up for an annual exam in 1 year or as needed. Care Reviewed delivery summary and any complications: Yes Uterus involuted to: 8 weeks size Perineal / incision healing noted: Yes Screened for depression: Yes Depression counseling provided: No Discussed family planning & contraception: Yes Contraception planned: Micronor Counseling on safe resumption of sexual activity: Yes Counseling on gradual excercise: Yes Discussed and concerns (describe), provided support: Yes Referred to manpower development specialist: No Counseled on good nutrition, hydration, and self care: Yes Reviewed vaccine status: No Chronic & current problems reconciled on problem list: No Infant care discussed; questions answered: feeding Follow up: routine/prn (FP) 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 Austin Order: galvin Delivery outcome: liveborn Interim details: breast and bottle feeding and no mood concerns Interim complaints: none concerns: none [place] score: 0
== END 2024-12-24 15:08 | disposition home or self-care (01) ==
LOC: HODSOBC 13:57
PROVIDERS: Supervising Provider Obstetrics & Gynecology; Visit Provider Obstetrics & Gynecology
DX: Z39.2 Encounter for routine postpartum follow-up (principal); Z39.1 Encounter for care and examination of lactating mother
CPT/HCPCS: 99213; G0463